=== PATIENT | female | born 1980 | race Caucasian/White ===

== ENCOUNTER 2017-01-21 07:37 | Day surgery (SDC) | payer OTHER ==
[2017-01-18 16:00] VITALS: BMI 30.1
[~2017-01-21 07:37] MED LIST: LACTATED RINGERS 1,000 ML IV SCH; LIDOCAINE 1% 20 ML VIAL (10MG/ML) FOR IV START INTRADERMA PRN
[2017-01-21 07:52] VITALS: RESP 16; TEMP 97
[2017-01-21] MEDS ORDERED: PROPOFOL 10 MG/ML 20 ML VIAL IV ONE (09:02)
--- NOTE | 2017-01-21 09:22 | P.PCN ---
Date of Procedure: 01/21/17 Preoperative Diagnosis: Postoperative Diagnosis: Procedure(s) Performed: BRIEF HISTORY: Patient is a 36-year-old pleasant white female, scheduled for an elective colonoscopy as a part of variation of history of colon polyps. Last colonoscopy was 5 years ago. She also has family history of colon cancer diagnosed in her father in his 50s. PROCEDURE PERFORMED: Colonoscopy. PREOPERATIVE DIAGNOSIS: History of Colon polyps and family history of colon cancer. IV sedation per Anesthesia. PROCEDURE: After informed consent was obtained, the patient, was brought into the endoscopy unit. IV sedation was administered by Anesthesia under continuous monitoring. Digital rectal examination was normal. Initially the Olympus CF- 160 flexible video colonoscope was then inserted in the rectum, gradually advanced into the cecum without any difficulty. Careful examination was performed as the scope was gradually being withdrawn. Ileocecal valve and the appendiceal orifice were visualized and appeared normal. Prep was excellent. Mucosa of the cecum, ascending colon, transverse colon, descending colon, sigmoid colon, and rectum appeared normal. Retroflexion was performed in the rectum and no lesions were seen. The patient tolerated the procedure well. IMPRESSION: Normal-appearing colon from rectum to cecum with no evidence of colorectal neoplasia. RECOMMENDATIONS: Findings of this examination were discussed with the patient as well as a family. She was advised to have a repeat colonoscopy in 5 years. Implants: Indications for Procedure: Operative Findings: Description of Procedure:
[2017-01-21 09:28] VITALS: PULSE 63
[2017-01-21 09:43] VITALS: BP 99/55
== END 2017-01-21 09:56 | disposition home or self-care (01) ==
LOC: ORWHC2ENDO 07:37
PROVIDERS: ATTEND Internal Medicine Gastroenterology
DX: Z12.11 Encounter for screening for malignant neoplasm of colon (principal); Z86.010 Personal history of colon polyps; Z80.0 Family history of malignant neoplasm of digestive organs; F17.200 Nicotine dependence, unspecified, uncomplicated
CPT/HCPCS: 81025; J2704; G0105; 45378

== ENCOUNTER 2017-08-24 15:44 | Outpatient (CLI) | payer OTHER | END 2017-08-24 16:11 | disposition home or self-care (01) | LOC: LABWHC1 15:44 → PEDOP 16:11 | PROVIDERS: ATTEND Family Medicine | DX: B34.9 Viral infection, unspecified (principal) | CPT/HCPCS: 87502; G0463; 99212 ==

== ENCOUNTER 2018-08-11 20:55 | Emergency (ER) | payer OTHER ==
[2018-08-11 21:01] VITALS: BP 125/82; PULSE 79; RESP 18; TEMP 98.6
[2018-08-11] MEDS ORDERED: KETOROLAC 30 MG/ML 1 ML VIAL IVP STA (21:46)
[2018-08-11] MEDS ORDERED: KETOROLAC 60 MG/2 ML VIAL IM STA (21:52)
--- NOTE | 2018-08-11 22:46 | XR ---
EXAMINATION TYPE: XR shoulder complete RT DATE OF EXAM: 08/11/2018 COMPARISON: NONE HISTORY: Shoulder pain TECHNIQUE: 3 views FINDINGS: I see no fracture nor dislocation. Joint spaces are normal. There are no pathologic calcifi cations. IMPRESSION: Negative right shoulder exam.
--- NOTE | 2018-08-11 22:52 | ED ---
General Adult HPI - General Chief complaint: Extremity Injury, Upper Stated complaint: IHS-shoulder, upper arm pain Source: patient, RN notes reviewed, old records reviewed Mode of arrival: ambulatory Limitations: no limitations - History of Present Illness Initial comments: 37-year-old female patient past medical history of hyperthyroidism, bigeminy status post ablation presents to ED with 1 day of right shoulder pain. 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 Patient states that while she was rolling a patient states she noticed that she had pain in her shoulder. Patient states this pain continued throughout the day. Patient states that when she uses her upper extremities to do strenuous tasks she has pain in her acromioclavicular region. Patient denies all other complaints. Patient denies chest pain, shortness of breath, abdominal pain, nausea vomiting diarrhea. Patient is status post tubal ligation, states she cannot be . Systemic: Pt denies fatigue, fever/chills, rash. Pt denies weakness, night sweats, weight loss. Neuro: Pt denies headache, visual disturbances, syncope or pre-syncope. HEENT: Pt denies ocular discharge or irritation, otalgia, rhinorrhea, pharyngitis or notable lymphadenopathy. Cardiopulmonary: Pt denies chest pain, SOB, heart palpitations, dyspnea on exertion. Abdominal/GI: Pt denies abdominal pain, n/v/d. : Pt denies dysuria, burning w/ urination, frequency/urgency. Denies new onset urinary or bowel incontinence. MSK: Pt denies loss of strength or function in extremities. Neuro: Pt denies new onset weakness, paresthesias. - Related Data Previous Rx's Medication Instructions Recorded Cyclobenzaprine [Flexeril] 1 - 2 tab PO TID #20 tablet 08/11/18 Ibuprofen [Motrin] 600 mg PO Q6HR PRN #40 day 08/11/18 Allergies Allergy/AdvReac Type Severity Reaction Status Date / Time No Known Allergies Allergy Verified 08/11/18 21:02 Review of Systems ROS Statement: Those systems with pertinent positive or pertinent negative responses have been documented in the HPI. ROS Other: All systems not noted in ROS Statement are negative. Past Medical History Past Medical History: Thyroid Disorder Additional Past Medical History / Comment(s): Other HX: Grave's disease, IRREGULAR HEART BEAT-BIGEMINY , MIGRAINE HEADACHE , History of Any Multi-Drug Resistant Organisms: None Reported Past Surgical History: Ablation, Cholecystectomy, Tubal Ligation Additional Past Surgical History / Comment(s): Essure procedure, colonoscopies with polypectomies- bilateral eyelid surgery , CARDIAC ABLATION X3 Past Anesthesia/Blood Transfusion Reactions: Motion Sickness Additional Past Anesthesia/Blood Transfusion Reaction / Comment(s): Pt has never recieved blood. Past Psychological History: Anxiety, Depression Smoking Status: Former smoker Past Alcohol Use History: None Reported Past Drug Use History: None Reported - Past Family History Father Family Medical History: Cancer Additional Family Medical History / Comment(s): COLON CANCER Mother Family Medical History: COPD, Hypertension General Exam - General Exam Comments Initial Comments: Constitutional: NAD, AOX3, Pt has pleasant affect. HEENT: NC/AT, trachea midline, neck supple, no lymphadenopathy. Posterior pharynx non erythematous, without exudates. External ears appear normal, without discharge. Mucous membranes moist. Eyes PERRLA, EOM intact. There is no scleral icterus. No pallor noted. Cardiopulmonary: RRR, no murmurs, rubs or gallops, no JVD noted. Lungs CTAB in anterior and posterior bolanos. No peripheral edema. Abdominal exam: Abdomen soft and non-distended. Abdomen non-tender to palpation in all 4 quadrants. Bowel sounds active in LLQ. No hepatosplenomegaly. No ecchymosis Neuro: CN II-XII grossly intact. No nuchal rigidity. MSK: Empty can test positive R side. Painful arc positive R side. AC joint mildly ttp. No ecchymosis. 5/5 biceps and triceps stregnth - both reproduced pain in R shoulder. No posterior calf tenderness bilaterally, homans sign negative bilaterally. Posterior tibialis and radial pulse +2 bilaterally. Sensation intact in upper and lower extremities. Full active ROM in upper and lower extremities. Limitations: no limitations Course Vital Signs 08/11/18 20:56 Temperature 98.6 F Pulse Rate 79 Respiratory 18 Rate Blood Pressure 125/82 O2 Sat by Pulse 100 Oximetry Medical Decision Making - Medical Decision Making 37-year-old female patient past medical history of hyperthyroidism, bigeminy status post ablation presents to ED with 1 day of right shoulder pain. 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 Patient states that while she was rolling a patient states she noticed that she had pain in her shoulder. Patient states this pain continued throughout the day. Patient states that when she uses her upper extremities to do strenuous tasks she has pain in her acromioclavicular region. Patient denies all other complaints. Pt VSS, afebrile. Physical exam displayed: Empty can test positive R side. Painful arc positive R side. AC joint mildly ttp. No ecchymosis. 5/5 biceps and triceps stregnth - both reproduced pain in R shoulder. No posterior calf tenderness bilaterally, homans sign negative bilaterally. Posterior tibialis and radial pulse +2 bilaterally. Plain film of R shoulder did not display acute process. EKG not concerning for acute ischemia. Pt dx with rotator cuff strain. Pt to f/ u with PCP in 1-2 days. Pt may work as tolerated. Pt to f/u with orthopedic consult in 1-2 days. Pt improved with toradol. Pt to be rx ibuprofen and flexeril outpt. Case discussed in depth with Dr. Pratt. - EKG Data -: EKG Interpreted by Me (and dr pratt ) EKG Comments: Ventricular rate 61,. MO interval 140, QRS 80, QT/QTC 393-394. Normal sinus rhythm, normal EKG. No concerns for acute ischemia. Disposition Clinical Impression: Rotator cuff strain Disposition: HOME SELF-CARE Condition: Good Instructions: Rotator Cuff Injury (ED) Additional Instructions: Patient to adhere to previously discussed treatment plan and will take medication(s) as directed. Patient to follow up with PCP in 1-2 days. Patient to return to ED if symptoms do not improve. Prescriptions: Cyclobenzaprine [Flexeril] 1 - 2 tab PO TID #20 tablet Ibuprofen [Motrin] 600 mg PO Q6HR PRN #40 day PRN Reason: Pain Is patient prescribed a controlled substance at d/c from ED?: No Referrals: Alberto Jean DO [Primary Care Provider] - 1-2 days Preet Lee MD [Medical Doctor] - 1-2 days Time of Disposition: 22:54
== END 2018-08-11 23:10 | disposition home or self-care (01) ==
LOC: EC 20:55
DX: S46.011A Strain of muscle(s) and tendon(s) of the rotator cuff of right shoulder, initial encounter (principal); Z87.891 Personal history of nicotine dependence; Z86.79 Personal history of other diseases of the circulatory system; Z98.890 Other specified postprocedural states; Z98.51 Tubal ligation status; Z53.8 Procedure and treatment not carried out for other reasons; X50.0XXA Overexertion from strenuous movement or load, initial encounter; Y93.89 Activity, other specified; Y99.0 Civilian activity done for income or pay
CPT/HCPCS: 93005; 73030; 99284; 96372; J1885

== ENCOUNTER → 2018-09-11 | Outpatient (CLI) | payer OTHER ==
--- NOTE | 2018-09-11 23:01 | MR ---
EXAMINATION TYPE: MR shoulder RT wo con DATE OF EXAM: 09/11/2018 COMPARISON: Right shoulder x-ray August 11, 2018 HISTORY: Rt shoulder pain/injury 4 weeks ago TECHNIQUE: Multiplanar, multisequence imaging of the right shoulder is performed without contrast. FINDINGS: Rotator Cuff: Distal supraspinatus and infraspinatus tendons are intact. Subscapularis tendon is inta ct. Rotator cuff muscle bulk is preserved. Acromioclavicular Joint: There is [id number] narrowing at acromioclavicular joint. No significa nt spurring is seen. Distal acromion morphology is slightly downsloping. Glenohumeral Joint: There is small to moderate size glenohumeral joint effusion. Mild narrowing is pr esent. No significant spurring is seen. Labrum: The labrum appears grossly intact given limitation of non-arthrogram study. Biceps Tendon: The long head of biceps is in normal location within bicipital groove. Bone marrow signal: No focal abnormal marrow signal is appreciated. Other: No additional significant abnormality is appreciated. IMPRESSION: No rotator cuff or labral tear is seen. Mild degenerative changes glenohumeral and acromi oclavicular joint are noted.
== END | disposition home or self-care (01) ==
LOC: RADMRIMAIN 18:04
PROVIDERS: ATTEND Emergency Medicine
DX: M19.011 Primary osteoarthritis, right shoulder (principal)

== ENCOUNTER → 2022-11-30 | Outpatient (CLI) | payer OTHER ==
[2022-12-01 02:23] LABS: African American GFR (CKD) 123.9 (60.0-200.0); Anion Gap 8.3 mmol/L (10.00-18.00); BUN/Creat Ratio 12.29 Ratio (12.00-20.00); Blood Urea Nitrogen 8.6 mg/dL (9.0-27.0); Calcium 9.2 mg/dL (8.7-10.3); Carbon Dioxide 26.7 mmol/L (20.0-27.5); Non-African American GFR(CKD) 106.9 (60.0-200.0); Potassium 4.3 mmol/L (3.5-5.5)
[2022-12-01 02:31] LABS: Basophils # (A) 0.05 X 10*3/uL (0.00-0.10); Basophils % (A) 0.4 %; Eosinophils # (A) 0.08 X 10*3/uL (0.04-0.35); Eosinophils % (A) 0.7 %; HCT 42.3 % (37.2-46.3); HGB 13.5 g/dL (12.0-15.0); Immature Grans, Automated 0.4 %; Lymphocytes # (A) 2.33 X 10*3/uL (0.90-5.00); Lymphocytes % (A) 20.6 %; MCHC 31.9 g/dL (32.0-37.0); MCV 100.2 fL (80.0-97.0); Mean Platelet Volume 10.3 fL (9.5-12.2); Monocytes # (A) 0.62 X 10*3/uL (0.20-1.00); Monocytes % (A) 5.5 %; NRBC Per 100 WBC 0 /100 WBCS (0.0-0.0); Neutrophils # (A) 8.17 X 10*3/uL (1.80-7.70); Neutrophils % (A) 72.4 %; Platelet Count 279 X 10*3/uL (140-440); RBC 4.22 X 10*6/uL (4.10-5.20); RDW 13.2 % (11.5-14.5); WBC 11.29 X 10*3/uL (4.50-10.00)
== END | disposition home or self-care (01) ==
LOC: LABPAT 14:42
PROVIDERS: ATTEND Obstetrics & Gynecology
DX: Z01.812 Encounter for preprocedural laboratory examination (principal)
CPT/HCPCS: 80048; 85025

== ENCOUNTER 2022-12-06 05:41 | Observation (INO) | payer OTHER ==
[2022-11-30 12:20] VITALS: BMI 26.5
--- NOTE | 2022-12-05 15:51 | P.HPOB ---
History of Present Illness H&P Date: 12/05/22 Chief Complaint: Menorrhagia 42 yo presents for total laparoscopic hysterectomy and bilateral salpingectomy using da Josué and diagnostic cystoscopy, possible HIMANSHU/BSO. She has menorrhagia, dysmenorrhea and abnormal Pap smears. Review of Systems All systems: negative Constitutional: Denies chills, Denies fever Eyes: denies blurred vision, denies pain Ears, nose, mouth and throat: Denies headache, Denies sore throat Cardiovascular: Denies chest pain, Denies shortness of breath Respiratory: Denies cough Gastrointestinal: Denies abdominal pain, Denies diarrhea, Denies nausea, Denies vomiting Genitourinary: Denies dysuria, Denies hematuria Musculoskeletal: Denies myalgias Integumentary: Denies pruritus, Denies rash Neurological: Denies numbness, Denies weakness Psychiatric: Denies anxiety, Denies depression Endocrine: Denies fatigue, Denies weight change Past Medical History Past Medical History: Thyroid Disorder Additional Past Medical History / Comment(s): Grave's disease, IRREGULAR HEART BEAT-BIGEMINY , MIGRAINE HEADACHE, SCIATICA, DDD, IRREGULAR HEAVY MENSES History of Any Multi-Drug Resistant Organisms: None Reported Past Surgical History: Cardiac Ablation, Cholecystectomy, Tubal Ligation, Uteri ne Ablation Additional Past Surgical History / Comment(s): Essure procedure, colonoscopies with polypectomies- bilateral eyelid surgery , CARDIAC ABLATION X3 Past Anesthesia/Blood Transfusion Reactions: Motion Sickness Additional Past Anesthesia/Blood Transfusion Reaction / Comment(s): Pt has never recieved blood. Smoking Status: Current every day smoker - Past Family History Father Family Medical History: Cancer Additional Family Medical History / Comment(s): COLON CANCER Mother Family Medical History: COPD, Hypertension Medications and Allergies Home Medications Medication Instructions Recorded Confirmed Type Acetaminophen [Tylenol] 650 mg PO DAILY PRN 11/30/22 11/30/22 History HYDROcodone/APAP 5-325MG [[place] 1 tab PO Q6HR PRN 11/30/22 11/30/22 History 5-325] Ibuprofen [Motrin Ib] 600 mg PO Q8H PRN 11/30/22 11/30/22 History methIMAzole [Tapazole] 2.5 mg PO DAILY 11/30/22 11/30/22 History Allergies Allergy/AdvReac Type Severity Reaction Status Date / Time No Known Allergies Allergy Verified 11/30/22 12:04 Exam Osteopathic Statement: *. No significant issues noted on an osteopathic structural exam other than those noted in the History and Physical/Consult. Heart: Regular rate and rhythm Lungs: Clear to auscultation bilaterally Abdomen: Soft, nontender Extremities: Negative Homans sign Assessment and Plan (1) Menorrhagia Status: Acute Code(s): N92.0 - EXCESSIVE AND FREQUENT MENSTRUATION WITH REGULAR CYCLE SNOMED Code(s): 534659227 (2) Dysmenorrhea Status: Acute Code(s): N94.6 - DYSMENORRHEA, UNSPECIFIED SNOMED Code(s): 772584820 (3) Atypical squamous cells of undetermined significance (ASCUS) on Papanicolaou smear of cervix Status: Acute Code(s): R87.610 - ATYP SQUAM CELL OF UNDET SIGNFC CYTO SMR CRVX (ASC-US) SNOMED Code(s): 362581117 Plan: 1. Total laparoscopic hysterectomy bilateral salpingectomy using da Josué and diagnostic cystoscopy, possible HIMANSHU/BSO
[2022-12-06] MEDS ORDERED: HYDROmorphone 0.5 MG/0.5 ML SYRINGE IVP PRN (05:56)
[2022-12-06] MEDS ORDERED: DEXAMETHASONE SOD PHOSPHATE 4 MG/ML 1 ML VIAL IV ONE (05:56)
[2022-12-06] MEDS ORDERED: ONDANSETRON 4 MG/2 ML VIAL IVP ONE (05:56)
[2022-12-06] MEDS: LACTATED RINGERS 1,000 ML IV SCH ×4 (06:17→20:50)
[2022-12-06] MEDS ORDERED: GLYCOPYRROLATE 0.2 MG/ML 2 ML VIAL ONE (07:08)
[2022-12-06] MEDS ORDERED: PROPOFOL 10 MG/ML 20 ML VIAL IV ONE (07:08)
[2022-12-06] MEDS ORDERED: SUCCINYLCHOLINE CHLORIDE 200 MG/10 ML VIAL IV ONE (07:08)
[2022-12-06] MEDS ORDERED: HYDROmorphone (PF) 1 MG/ML ONE (07:08)
[2022-12-06] MEDS ORDERED: MIDAZOLAM 2 MG/2 ML VIAL ONE (07:08)
[2022-12-06] MEDS ORDERED: LIDOCAINE 2% INJ 20 MG/ML (2 ML VIAL) ONE (07:08)
[2022-12-06] MEDS ORDERED: ROCURONIUM 10 MG/ML (5 ML VIAL) IV ONE (07:08)
[2022-12-06] MEDS ORDERED: KETOROLAC 15 MG/ML 1 ML VIAL ONE (07:08)
[2022-12-06] MEDS ORDERED: fentaNYL (PF) 50 MCG/ML 2 ML AMP ONE (07:08)
[2022-12-06] MEDS ORDERED: NEOSTIGMINE 1 MG/ML 10 ML VIAL ONE (07:08)
[2022-12-06] MEDS ORDERED: BUPIVACAINE (PF) 0.25% 30 ML VIAL SQ ONE ×2 (08:05)
[2022-12-06] MEDS ORDERED: LACTATED RINGERS 1,000 ML IV ONE ×3 (08:30→15:05)
[2022-12-06] MEDS ORDERED: SODIUM CHLORIDE 0.9% 500 ML 500 ML IV ONE ×2 (08:47)
--- NOTE | 2022-12-06 08:54 | P.OP ---
Date of Procedure: 12/06/22 Preoperative Diagnosis: 1. Dysmenorrhea 2. menorrhagia Postoperative Diagnosis: same Procedure(s) Performed: Total Laparoscopic hysterectomy and bilateral salpingectomy Anesthesia: ASHOK Surgeon: Kourtney Watters Clinical Documentation Spec #1: Giulia Martins Estimated Blood Loss (ml): 20 IV fluids (ml): 300 Urine output (ml): 50 Pathology: other Operative Findings: Essure coils noted. Normal Uterus, tubes and ovaries. Description of Procedure: Patient taken the operating room where general anesthesia was obtained without difficulty. She is prepped and draped in normal sterile fashion dorsal lithotomy position, legs placed in the Edwin stirrups. Weighted speculum placed in the vagina and the anterior lip the cervix was grasped with single-tooth tenaculum. The uterus sounded to 8 cm. The largest V care was then introduced into the uterus. Franklin catheter was also placed. Attention was then turned to the abdomen and gloves were changed. A 5 mm supraumbilical incision was made the scalpel and a 5 mm optical trocar was placed under direct visualization. 10 cm to the right of this and 2 cm down a 5 mm incision was made and 8 mm da Josué port was placed under direct visualization. Same measurements on the opposite side of the patient's abdomen, the 5 mm incision was made and 8 mm da Josué port was placed under direct visualization. In the left upper quadrant a 10 mm incision was made and a 10 mm optical trocar was placed under direct visualization. The 5 mm optical trocar was then replaced with the 8 mm da Josué camera port. The robot was docked on patient's right side. The camera was introduced and then the monopolar curved scissor and [place] bipolar placed under direct visualization. I broke scrub and went to the physician console. The left fallopian tube was sealed and cut using the vessel sealer. The left round ligament and utero-ovarian ligaments were sealed and cut with the vessel sealer. The posterior leaf of the broad ligament was taken down using the monopolar curved scissors. Anterior leaf of the broad ligament was then taken down using the monopolar curved scissors. The uterine artery was sealed and cut using the vessel sealer. Attention was then turned to the right side of the patient's anatomy and the right fallopian tube was sealed and cut using the vessel sealer. The right round ligament and utero-ovarian ligaments were sealed and cut using the vessel sealer. Posterior leaf of the broad ligament was taken down using the monopolar curved scissors and the anterior leaf was taken down using the monopolar curved scissors. The uterine artery was cauterized the [place] bipolar cut with monopolar curved scissors. The bladder flap was then finished on this side. Anterior colpotomy was made using the monopolar curved scissors. The rest of the uterus was from the vaginal cuff by following the ring around with the monopolar curved scissors through the uterosacral ligaments back to the anterior portion. Once the uterus and cervix were amputated they were pulled through the vaginal cuff. Hemostasis was assured. The scissors instruments was replaced with the rajinder suture cut. The vaginal cuff was then closed using O stratafix barbed suture in a running fashi on. Hemostasis was again assured and the pelvis was irrigated. All instruments were removed from the abdomen and the robot was undocked. I scrubbed back in to perform a cystoscopy. There were jets from both ureteral orifices. The abdominal incisions were closed with 4-0 Vicryl in a subcuticular fashion. Patient tolerated the procedure well, sponge and instrument counts correct 2 and she was taken to recovery room in stable condition condition
[2022-12-06] MEDS ORDERED: SIMETHICONE 80 MG CHEWABLE PO PRN (08:55)
[2022-12-06] MEDS ORDERED: HYDROcodone/APAP 7.5-325MG 1 EACH TAB PO PRN (08:58)
[2022-12-06] MEDS ORDERED: HYDROmorphone 0.5 MG/0.5 ML SYRINGE IVP ONE (09:12)
[2022-12-06] MEDS: KETOROLAC 15 MG/ML 1 ML VIAL IVP PRN (16:41)
[2022-12-06] MEDS: SENNOSIDES-DOCUSATE SODIUM 1 EACH TAB PO SCH (20:51)
[2022-12-07] MEDS: LACTATED RINGERS 1,000 ML IV SCH ×2 (02:34→02:37)
[2022-12-07 03:28] VITALS: PULSE 60
[2022-12-07] MEDS: KETOROLAC 15 MG/ML 1 ML VIAL IVP PRN (06:48)
[2022-12-07] MEDS: SENNOSIDES-DOCUSATE SODIUM 1 EACH TAB PO SCH (08:28)
[2022-12-07] MEDS ORDERED: ACETAMINOPHEN TAB 325 MG TAB PO PRN (08:57)
--- NOTE | 2022-12-07 09:05 | P.DS ---
Providers Date of admission: 12/06/22 08:40 Expected date of discharge: 12/07/22 Attending physician: Kourtney Watters Primary care physician: Ketty Valdez - Discharge Diagnosis(es) (1) Menorrhagia Current Visit: No Status: Resolved (2) Dysmenorrhea Current Visit: No Status: Resolved (3) Atypical squamous cells of undetermined significance (ASCUS) on Papanicolaou smear of cervix Current Visit: No Status: Resolved (4) History of robot-assisted laparoscopic hysterectomy Current Visit: Yes Status: Acute Hospital Course: She presented for total laparoscopic hysterectomy and bilateral salpingectomy using da Josué. She underwent this procedure without complication. Postoperatively she is doing very well. She did go into bigeminy and was admitted to telemetry and had some lower blood pressures which were treated with IV fluids. Patient's pain is well-controlled and bedding and voiding without difficulty and tolerating regular diet. Incisions are clean, dry, intact. Patient will be discharged home postoperative day #1 in stable condition to follow-up with me in 3 weeks. Plan - Discharge Summary Discharge Rx Participant: Yes New Discharge Prescriptions: Continue Ibuprofen [Motrin Ib] 600 mg PO Q8H PRN #30 tab PRN Reason: Pain No Action HYDROcodone/APAP 5-325MG [[place] 5-325] 1 tab PO Q6HR PRN PRN Reason: Pain methIMAzole [Tapazole] 2.5 mg PO DAILY Acetaminophen [Tylenol] 650 mg PO DAILY PRN PRN Reason: Pain Discharge Medication List Acetaminophen [Tylenol] 650 mg PO DAILY PRN 11/30/22 [History] HYDROcodone/APAP 5-325MG [[place] 5-325] 1 tab PO Q6HR PRN 11/30/22 [History] methIMAzole [Tapazole] 2.5 mg PO DAILY 11/30/22 [History] Ibuprofen [Motrin Ib] 600 mg PO Q8H PRN #30 tab 12/07/22 [Rx] Follow up Appointment(s)/Referral(s): Kourtney Watters DO [Doctor of Osteopathic Medicine] - 3 Weeks Discharge Disposition: HOME SELF-CARE
[2022-12-07 09:23] LABS: Basophils % (A) 0 %; Eosinophils # (A) 0.1 k/uL (0-0.7); Eosinophils % (A) 1 %; HCT 38.6 % (34.0-46.0); HGB 12.1 gm/dL (11.4-16.0); Lymphocytes # (A) 2.1 k/uL (1.0-4.8); Lymphocytes % (A) 28 %; MCHC 31.3 g/dL (31.0-37.0); Macrocytosis Slight; Mean Platelet Volume 7.9; Monocytes # (A) 0.5 k/uL (0-1.0); Monocytes % (A) 7 %; Neutrophils # (A) 4.8 k/uL (1.3-7.7); Neutrophils % (A) 63 %; Platelet Count 239 k/uL (150-450); RBC 3.78 m/uL (3.80-5.40); RDW 12.9 % (11.5-15.5); WBC 7.6 k/uL (3.8-10.6)
[2022-12-07 10:26] VITALS: BP 111/74; RESP 16; TEMP 97.8
== END 2022-12-07 10:15 | disposition home or self-care (01) ==
LOC: OR 05:41 → 3SCARD 08:40 → OR 08:40 → 4FBP 08:47 → 3SCARD 11:04
PROVIDERS: ADMIT Obstetrics & Gynecology; ATTEND Obstetrics & Gynecology
DX: N92.0 Excessive and frequent menstruation with regular cycle (principal); N94.6 Dysmenorrhea, unspecified; E05.00 Thyrotoxicosis with diffuse goiter without thyrotoxic crisis or storm; I49.40 Unspecified premature depolarization; G43.909 Migraine, unspecified, not intractable, without status migrainosus; M54.30 Sciatica, unspecified side; Z90.49 Acquired absence of other specified parts of digestive tract; Z98.51 Tubal ligation status; Z98.890 Other specified postprocedural states; F17.200 Nicotine dependence, unspecified, uncomplicated; Z80.0 Family history of malignant neoplasm of digestive organs; Z82.49 Family history of ischemic heart disease and other diseases of the circulatory system; Z83.6 Family history of other diseases of the respiratory system; Z79.899 Other long term (current) drug therapy
CPT/HCPCS: 81025; 86900; 86901; 85025; 86850; 88307; 58571; G0378; J2250; J0330; J1100; J2710; J0690; J2405; J3010; J1170 ×2; J1885 ×2; J2704; J2001

== ENCOUNTER 2024-09-24 06:51 | Emergency (ER) | payer OTHER, BC ==
--- NOTE | 2024-09-24 07:22 | ED ---
Back Pain HPI - General Chief Complaint: Back Pain/Injury Stated Complaint: Back Pain Time Seen by Provider: 09/24/24 07:19 Source: patient, RN notes reviewed, old records reviewed Mode of arrival: wheelchair Limitations: no limitations - History of Present Illness Initial Comments: Patient is a 43-year-old female presented to the ER for evaluation of back pain. Patient states she has known bulging disks in her back and is following up with PCP, Dr. Phillip. She states she typically takes Celebrex which greatly improves pain along with Flexeril. She is currently trying to schedule an outpatient MRI through Dr. Phillip but is having difficulties as she recently started a new job. 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 Patient states uneven surfaces and standing straight up increased pain. Patient states she typically has numbness and sciatic pain in her left lower extremity but states she is currently having radiating pain in her right lower extremity. She denies any injuries or traumas. Patient states she took Celebrex and Flexeril yesterday and laid in bed all day with improvement of pain. Patient states she woke up this morning feeling great with no discomfort. She states she was on the toilet having a bowel movement when she twisted to wipe her bottom she had the intense pain again. She did take Celebrex prior to arrival. Patient denies any bowel or bladder incontinence, saddle paresthesias, fevers. No other complaints. - Related Data Home Medications Medication Instructions Recorded Confirmed Acetaminophen [Tylenol] 650 mg PO DAILY PRN 11/30/22 11/30/22 HYDROcodone/APAP 5-325MG [Be[place] 1 tab PO Q6HR PRN 11/30/22 11/30/22 5-325] methIMAzole [Tapazole] 2.5 mg PO DAILY 11/30/22 11/30/22 Previous Rx's Medication Instructions Recorded Ibuprofen [Motrin Ib] 600 mg PO Q8H PRN #30 tab 12/07/22 predniSONE 50 mg PO DAILY #5 tab 09/24/24 Allergies Allergy/AdvReac Type Severity Reaction Status Date / Time No Known Allergies Allergy Verified 09/24/24 07:00 Review of Systems ROS Statement: Those systems with pertinent positive or pertinent negative responses have been documented in the HPI. ROS Other: All systems not noted in ROS Statement are negative. Past Medical History Past Medical History: Thyroid Disorder Additional Past Medical History / Comment(s): Grave's disease, IRREGULAR HEART BEAT-BIGEMINY , MIGRAINE HEADACHE, SCIATICA, DDD, IRREGULAR HEAVY MENSES History of Any Multi-Drug Resistant Organisms: None Reported Past Surgical History: Cardiac Ablation, Cholecystectomy, Tubal Ligation, Uterine Ablation Additional Past Surgical History / Comment(s): Essure procedure, colonoscopies with polypectomies- bilateral eyelid surgery , CARDIAC ABLATION X3 Past Anesthesia/Blood Transfusion Reactions: Motion Sickness Additional Past Anesthesia/Blood Transfusion Reaction / Comment(s): Pt has never recieved blood. Past Psychological History: Anxiety, Depression Smoking Status: Current every day smoker Past Alcohol Use History: Rare Past Drug Use History: None Reported - Past Family History Father Family Medical History: Cancer Additional Family Medical History / Comment(s): COLON CANCER Mother Family Medical History: COPD, Hypertension General Exam Limitations: no limitations General appearance: alert, in no apparent distress Neck exam: Present: normal inspection. Absent: tenderness, meningismus, lymphadenopathy Respiratory exam: Present: normal lung sounds bilaterally. Absent: respiratory distress, wheezes, rales, rhonchi, stridor Cardiovascular Exam: Present: regular rate, normal rhythm, normal heart sounds. Absent: systolic murmur, diastolic murmur, rubs, gallop, clicks Extremities exam: Present: normal inspection, full ROM, normal capillary refill (2+ bilateral DP/PT pulse). Absent: tenderness, pedal edema, joint swelling, calf tenderness Back exam: Present: normal inspection, tenderness (tenderness to L4/L5. ), other (no overlying skin changes. pain with straight leg raise bilaterally) Neurological exam: Present: alert, oriented X3, CN II-XII intact Skin exam: Present: warm, dry, intact, normal color. Absent: rash Course Vital Signs 09/24/24 06:57 Temperature 97.7 F Pulse Rate 78 Respiratory 18 Rate Blood Pressure 114/76 O2 Sat by Pulse 100 Oximetry Medical Decision Making - Medical Decision Making Was pt. sent in by a medical professional or institution (, PA, PRECISION GRINDER, urgent care, hospital, or long term...) When possible be specific @ -No Did you speak to anyone other than the patient for history (EMS, parent, family, police, friend...)? What history was obtained from this source @ -No Did you review nursing and triage notes (agree or disagree)? Why? @ -I reviewed and agree with nursing and triage notes Were old charts reviewed (outside hosp., previous admission, EMS record, old EKG, old radiological studies, urgent care reports/EKG's, long term records)? Report findings @ -No old charts were reviewed Differential Diagnosis (chest pain, altered mental status, abdominal pain women, abdominal pain men, vaginal bleeding, weakness, fever, dyspnea, syncope, headache, dizziness, GI bleed, back pain, seizure, CVA, palpatations, mental health, musculoskeletal)? @ -Differential Back Pain:Strain, zoster, cauda equina syndrome, epidural abscess, vertebral osteomyelitis, discitis, fracture, subluxation, disc herniation, DJD, spinal stenosis, dissection, AAA, pancreatitis, peptic ulcer disease, pyelonephritis, kidney stone, this is not meant to be an all-inclusive list. EKG interpreted by me (3pts min.). @ -[None done X-rays interpreted by me (1pt min.). @ -None done CT interpreted by me (1pt min.). @ -CT lumbar spine showing no acute fractures or dislocations. U/S interpreted by me (1pt. min.). @ -None done What testing was considered but not performed or refused? (CT, X-rays, U/S, labs)? Why? @ -None What meds were considered but not given or refused? Why? @ -None Did you discuss the management of the patient with other professionals (professionals i.e. , PA, PRECISION GRINDER, lab, RT, psych nurse, social work instructor, diathermy equipment repairer, teacher, electrical engineering drafting officer, child support case officer)? Give summary @ -No Was smoking cessation discussed for >3mins.? @ -No Was critical care preformed (if so, how long)? @ -No Were there social determinants of health that impacted care today? How? (Homelessness, low income, unemployed, alcoholism, drug addiction, transportation, low edu. Level, literacy, decrease access to med. care, usp, rehab)? @ -No Was there de-escalation of care discussed even if they declined (Discuss DNR or withdrawal of care, Hospice)? DNR status @ -No What co-morbidities impacted this encounter? (DM, HTN, Smoking, COPD, CAD, Cancer, CVA, ARF, Chemo, Hep., AIDS, mental health diagnosis, sleep apnea, morbid obesity)? @ -None Was patient admitted / discharged? Hospital course, mention meds given and route, prescriptions, significant lab abnormalities, going to OR and other pertinent info. @ -Discharge. 43-year-old female presented to the ER for evaluation of back pain. Vitals within acceptable limits. No red flag back pain symptoms indicative of cauda equina syndrome. Patient is neurovascularly intact. There is tenderness noted to L5. CT lumbar spine showing no acute process. Symptomatic treatment in the ER with lidocaine patches and Norflex as patient took celebrex prior to arrival. Patient is stable for discharge at this time with close outpatient follow-up with PCP and orthopedics, referral given. Prednisone prescribed. Patient reports she has Flexeril, [place] and Celebrex at home. Patient eager for discharge at this time stating she would like to go home and lay in bed. Work note provided. Strict return parameters discussed. Patient discharged stable condition. Patient verbally expressed understanding and agreement with care plan. Case discussed with ED attending by Dr. Vargas. Undiagnosed new problem with uncertain prognosis? @ -No Drug Therapy requiring intensive monitoring for toxicity (Heparin, Nitro, Insulin, Cardizem)? @ -No Were any procedures done? @ -No Diagnosis/symptom? @ -Back pain Acute, or Chronic, or Acute on Chronic? @ -Acute Uncomplicated (without systemic symptoms) or Complicated (systemic symptoms)? @ -Uncomplicated Side effects of treatment? @ -No Exacerbation, Progression, or Severe Exacerbation? @ -No Poses a threat to life or bodily function? How? (Chest pain, USA, ID, pneumonia, PE, COPD, DKA, ARF, appy, cholecystitis, CVA, Diverticulitis, Homicidal, Suicidal, threat to staff... and all critical care pts) @ -No - Radiology Data Radiology results: report reviewed, image reviewed Disposition Clinical Impression: Back pain Disposition: HOME SELF-CARE Condition: Stable Instructions (If sedation given, give patient instructions): Acute Low Back Za n (ED) Additional Instructions: Follow-up with PCP and orthopedics. Return to the ER for any new or worsening symptoms. Prescriptions: predniSONE 50 mg PO DAILY #5 tab Is patient prescribed a controlled substance at d/c from ED?: No Referrals: Yeyo Phillip [Primary Care Provider] - 1-2 days Preet Lee MD [Medical Doctor] - 1-2 days Time of Disposition: 08:35
[2024-09-24] MEDS: ORPHENADRINE 30 MG/ML 2 ML VIAL IM STA (07:25)
[2024-09-24] MEDS: LIDOCAINE 4% PATCH TOPICAL ONE (07:26)
--- NOTE | 2024-09-24 08:23 | CT ---
EXAMINATION TYPE: CT lumbar spine wo con DATE OF EXAM: 09/24/2024 8:14 AM COMPARISON: None. CLINICAL INDICATION: Female, 43 years old with history of pain; PHH, Back pain TECHNIQUE: Unenhanced CT of the lumbar spine was performed. Bone and soft tissue window settings are submitted as well as coronal and sagittal reconstructions. CT DLP: 621.4 mGycm Automated exposure control for dose reduction was used. FINDINGS: There are 5 lumbar type vertebra. Lumbar spine show satisfactory alignment. There is [id number] disc space narrowing at L4-L5 level otherwise vertebral body heights and disc space heights are fair ly well preserved. Axial images at L4-L5 level show mild/moderate facet arthropathy and ligamentum flavum hypertrophy an d mild broad disc bulge with some effacement anterior and the bilateral posterior lateral thecal sac on axial image 59. A few scattered colonic diverticula are seen. Cholecystectomy clips are noted. IMPRESSION: No acute findings are present. [facility], , 09/24/2024 8:20 AM
[2024-09-24 08:56] VITALS: BP 114/72; PULSE 69; RESP 20; TEMP 98.1
== END 2024-09-24 08:58 | disposition home or self-care (01) ==
LOC: EC 06:51
DX: M54.50 Low back pain, unspecified (principal); F17.200 Nicotine dependence, unspecified, uncomplicated
CPT/HCPCS: 72131; 99284; 96372; J2360